=== PATIENT | male | born 2000 | race Hispanic/Latino ===

== ENCOUNTER 2024-09-26 07:02 | Day surgery (SDC) | payer OTHER ==
[2024-09-23 12:24] LABS: IMMATURE GRANULOCYTE ABSOLUTE 0.06 K/uL (0-1); NUCLEATED RED BLOOD CELLS 0.0 % (0.0-0.19); PLATELET COUNT (AUTO) 327 K/uL (130-400); RED BLOOD CELL COUNT(AUTO) 5.39 MIL/uL (4.50-6.20); RED CELL DISTRIBUTION WIDTH 12.4 % (11.0-15.5); WHITE BLOOD COUNT (AUTO) 9.8 K/uL (4.8-10.8)
[2024-09-23 12:31] LABS: APPEARANCE,URINE CLEAR (CLEAR); GLUCOSE, URINE (UA) NEGATIVE (NEGATIVE); LEUKOCYTE ESTERASE ,URINE NEGATIVE Leu/uL (NEGATIVE); NITRATE,URINE NEGATIVE (NEGATIVE); OCCULT BLOOD,URINE NEGATIVE (NEGATIVE)
[2024-09-23 12:36] LABS: CREATININE 1.0 mg/dL (0.5-1.3); GLOMERULAR FILTR. RATE CALC 108.0 mL/min (>90); GLUCOSE,RANDOM 102.0 mg/dL (70-105); SODIUM SERUM 136.0 mmol/L (136-145); UREA NITROGEN, BLOOD 10.0 mg/dL (7-18)
[2024-09-23 12:43] LABS: ADD UA MICROSCOPIC NO
[2024-09-23 12:53] VITALS: BP 155/74; PULSE 55; RESP 17; TEMP 97.6
[~2024-09-26] VITALS: Ht 170.2 cm; Wt 86.7 kg
[2024-09-26] VITALS (12 sets, daily range): BP systolic 127–147; BP diastolic 55–77; PULSE 15–95; RESP 12–18; TEMP 97.4–98.3
[~2024-09-26 07:02] MED LIST: IBUP-2784 PO
[2024-09-26] MEDS: LACTATED RINGERS 1000ML 1,000 ML IV ONE (08:02)
[2024-09-26] MEDS ORDERED: SULF1TAB42 PO (09:00)
[2024-09-26] MEDS ORDERED: LIDOCAINE PF 100MG/5ML (2%) SYRINGE 5ML ONE (09:00)
[2024-09-26] MEDS ORDERED: MIDAZOLAM HCL 1 MG/ML 2ML VIAL ONE (09:02)
[2024-09-26] MEDS ORDERED: GLYCOPYRROLATE 0.2 MG/ML 5 ML VIAL ONE (12:24)
[2024-09-26] MEDS ORDERED: NEOSTIGMINE METHYLSULFATE 1MG/ML IV ONE (12:24)
[2024-09-26] MEDS ORDERED: HYDR-4060 PO (12:37)
--- NOTE | 2024-09-26 12:58 | OP ---
Operative Note: DATE OF PROCEDURE: 09/26/24 SURGEON: NAN DE GUZMAN MD BENDING ROLL HAND: [Lola Grimaldo [facility]. Jose Sumner [facility]] ANESTHESIA: [General anesthesia plus regional block] ANESTHESIOLOGIST/POWDERED SUGAR PULVERIZER OPERATOR: [Luna Gordon CRNA] PREOPERATIVE DIAGNOSIS: [Traumatic ACL tear left knee] POSTOPERATIVE DIAGNOSIS: [Traumatic ACL tear left knee, grade 2 chondromalacia medial femoral condyle] IMPLANTS: [BIOMET zip loop system with a 7 mm clip. AperFix tibia system with an 8X30 mm screw] PROCEDURE: [Arthroscopic left knee ACL reconstruction] ESTIMATED BLOOD LOSS: [Is then 20 mL] INDICATIONS: [The patient is a 23-year-old male that sustained an injury at work that resulted in the ACL tear. The patient has been treated conservatively continue complain of instability. The patient is brought to the operating room for an ACL reconstruction. Procedure understood, risks, benefits and possible complications and the patient agreed to sign the consent form] DESCRIPTION OF PROCEDURE: [After adequate general anesthesia was achieved and regional block obtained the patient was placed in the operative table. The dist al end of the table was flexed to allow for the leg to bend at the knee freely and the nonoperative leg was placed elevated in lithotomy position. Then we proceeded to apply the tourniquet to the proximal aspect of the operative extremity and prepping and draping was then done in the usual manner. The extremity was elevated and exsanguinated with an Esmarch band and the tourniquet was inflated to 250 mm Hg. the Esmarch band been removed. Standard portal incisions were carried down medial lateral to the patella tendon at the joint line level through the skin followed by blunt penetration with a trocar into the joint. The arthroscope was then inserted through the lateral portal with the knee in extension and evaluation revealed a normal suprapatellar area. The patellofemoral joint revealed no abnormalities. The knee was brought and then into flexion and the arthroscope was inserted into the medial compartment revealed grade 2 chondromalacia of the medial femoral condyle and the meniscus being intact. The arthroscope was then transferred to the intercondylar notch with the PCL was noted to be intact but there was a very obvious tear of the anterior cruciate ligament with a large stump present in the tibial attachment. At this point the knee was placed in a [id number] position and we were able to penetrate in the lateral compartment which revealed normal articular surface of the tibiofemoral joint and an intact meniscus. After bringing the knee back into standard flexion position I proceeded to remove the arthroscope from the joint and then obtain the autograft from the presence of Raynaud's. A 4 cm incision was carried longitudinally down in the anterior medial aspect of the proximal tibia through the skin followed by dissection subcutaneous tissue the pes anserinus was identified and dissected subperiosteally from its insertion being able to apply a retractor and we visualize the gracilis semitendinosus tendons which were dissected free from its insertion and then with the use of a tendon harvester the tendon were excised and passed to the back table to be prepared and while a tendon allograft was being prepared in the back table at 8 mm diameter we proceeded to use the shaver to remove the stump from the ACL followed by cleaning the medial wall of the lateral femoral condyle at the intercondylar notch and then a small notchplasty was performed to allow better entry of the allograft. We then proceeded to bring the [id number] femoral guide and penetrated into the medial portal we reached the posterior border of the femoral condyle the 2 o'clock position with the knee in hyperflexion and we proceeded to apply a guidewire through the bone exiting through the lateral femoral condyle measuring 45 mm and then continuing passing through the skin. The drain was disengaged from the guidewire and then we proceeded to follow-up with the application of as 8 mm intra-articular reamer and a 25 mm tunnel was made removing the reamer and then a 4.5 reamer followed that continued reaming until it penetrated through the cortex. After the reamer was removed we then proceeded to apply a looped FiberWire suture at the distal end of the wire and t hen this was pulled proximally exiting through the lateral aspect of the thigh leaving the suture in the joint. The tibial guide was then inserted through the medial portal and the entry point was placed in the middle portion of the tibia at the level of the posterior border of the lateral meniscus anterior horn and after marking in the skin of the proximal tibia we proceeded to remove the guide and the knee was brought into extension proceeded then to do a small incision across the skin, subcutaneous tissue and reaching the periosteum which was then elevated. The knee was brought back into flexion and the tibial guide was then given applied and at this time the guide for the pin was inserted distally in contact with the proximal tibia and a glide wire was inserted with a drill exiting in the joint in the proximal tibia at the appropriate level. Then we proceeded to apply the 8 mm reamer distally and made the tibial tunnel for the graft. With the use of the shaver we proceeded to clean intra-articularly all the debris and then we proceeded to use the tibial tunnel to bring the suture intra-articular portion through to connect the femoral and tibial tunnel. The graft which was prepared in the back table with the toggle lock femoral fixation device was then brought to the operative field and the loop suture was then used to pass the sutures of the graft and the sutures were pulled through the tunnels to exit through the lateral thigh and then gently we pulled the sutures until the toggle lock part of the suture was felt to pass through the femoral cortex and then we proceeded to pull back firmly to lock the clip against the cortex. At this time we then transferred to the medial portal exit the toggle sutures and once this was achieved the graft was gently pulled through the tibial tunnel, joint and into the femoral tunnel. Once this was achieved we then proceeded to dynamize the graft by pulling while doing flexion extension movements and then with the knee in 15 degrees of flexion we proceeded to lock the graft in the tibia with a X mm Aperfix tibia PEEK screw while holding the graft in tension. Once the fixation was completed we proceeded to check the anterior drawer and Sheron's noticing to be normal and then we proceeded to insert the arthroscope once again and check the graft as well as the range of motion noticing to be normal with the graft not impinging in flexion or extensi on. The toggle sutures were removed from the joint and the pulling suture was removed from the thigh. We then proceeded to deflate the tourniquet and the wounds were closed with approximation of the arthroscopic sutures with 3 oh nylon sutures in a standard fashion and the anteromedial tibial incision was irrigated and then the excess tendon was excised and the 2 ends sutured together followed by reapproximation of the subcutaneous tissue with 2-0 Monocryl inverted stitches and the skin was closed with 3-0 Monocryl subcuticularly and Dermabond was applied to cover the incision. The wounds were covered with a soft dressing and the patient was then transferred to his bed and taken to recovery room for follow-up anesthesia. There were no complications during the procedure.] NAN DE GUZMAN MD Sep 26, 2024 12:58
--- NOTE | 2024-09-26 14:29 | NUR ---
Full and complete discharge instructions given to Patient and Family both verbally and in writing. Explained Surgical procedure precautions and follow up. Left Knee dressing site clean dry and intact. No evidence of bleeding, bruising or hematoma. Neurovascularly intact. All questions answered. PIV removed with catheter tip intact. Mom at bedside appearing supportive. W/C to POV with Mom to home
== END 2024-09-26 14:25 | disposition home or self-care (01) ==
LOC: DAH 07:02
PROVIDERS: ATTEND Orthopaedic Surgery
DX: S83.512A Sprain of anterior cruciate ligament of left knee, initial encounter (principal); M94.262 Chondromalacia, left knee; M23.92 Unspecified internal derangement of left knee; R26.9 Unspecified abnormalities of gait and mobility; T14.8XXA Other injury of unspecified body region, initial encounter; W18.43XA Slipping, tripping and stumbling without falling due to stepping from one level to another, initial encounter; Y93.89 Activity, other specified; Y92.89 Other specified places as the place of occurrence of the external cause; Y99.0 Civilian activity done for income or pay; Z79.899 Other long term (current) drug therapy
CPT/HCPCS: 80048; 85025; 87086; 81003; 36415; 29888; 64447; 64450; J1885; C1776; A4663; J7120 ×2; A4649 ×4; J3010 ×2; J0690 ×3; J2270; J3490 ×3; J2003; J2250; J2704; J2710; J2795; A6223; C1769; A4930 ×2; A5120; A4215; A4222; A4221; A4216; A6450; A4223 ×2; J0169